=== PATIENT | male | born 2000 | race African-American/Black ===

== ENCOUNTER 2024-12-28 16:09 | Emergency (ER) | payer BC | END 2024-12-28 17:50 | disposition home or self-care (01) | LOC: EDSEX 16:09 → NAV ERS 16:09 | DX: S16.1XXA Strain of muscle, fascia and tendon at neck level, initial encounter (principal); S80.02XA Contusion of left knee, initial encounter; S40.012A Contusion of left shoulder, initial encounter; F17.220 Nicotine dependence, chewing tobacco, uncomplicated; F17.290 Nicotine dependence, other tobacco product, uncomplicated; V49.9XXA Car occupant (driver) (passenger) injured in unspecified traffic accident, initial encounter; Y92.410 Unspecified street and highway as the place of occurrence of the external cause | CPT/HCPCS: 72125 ==